=== PATIENT | female | born 1995 | race African-American/Black ===

== ENCOUNTER 2022-04-15 01:20 | Emergency (ER) | payer MEDICAID, OTHER ==
[~2022-04-15] VITALS: Ht 170.2 cm; Wt 80.0 kg
[2022-04-15] MEDS ORDERED: LEVETIRACETAM 1000MG PREMIX 100 ML IV ONE (02:45)
[2022-04-15 03:29] LABS: BASOPHILS % 0.8 % (0.0-2.0); HEMATOCRIT. 43.7 % (36.0-48.0); HEMOGLOBIN. 14.7 g/dL (12.0-16.0); LYMPHOCYTES % 51.9 % (20.0-50.0); MEAN CORPUSCULAR HEMOGLOBIN 33.2 pg (28.0-32.0); MEAN PLATELET VOLUME 7.7 fl (7.4-10.4); MONOCYTES % 8.6 % (2.0-8.0); NEUTROPHILS % 36.7 % (40.0-76.0); PLATELET 213 x1000/uL (130-400); RED BLOOD CELL COUNT 4.42 mill/uL (4.2-5.4); RED CELL DISTRIBUTION WIDTH 13.9 % (11.6-14.6)
[2022-04-15 03:43] LABS: CHLORIDE 107 mEq/L (98-107)
[2022-04-15 03:52] LABS: ETHANOL BLOOD 93 mg/dL
[2022-04-15 04:14] LABS: HCG SCREEN NEGATIVE
[2022-04-15 06:50] VITALS: BP 105/59
== END 2022-04-15 06:59 | disposition home or self-care (01) ==
LOC: ER 01:20
DX: F10.20 Alcohol dependence, uncomplicated (principal); G40.909 Epilepsy, unspecified, not intractable, without status epilepticus; Z98.890 Other specified postprocedural states; Y90.4 Blood alcohol level of 80-99 mg/100 ml
CPT/HCPCS: 36415; 70450; 80053; 80320; 84703; 85025; 96365; 99284; J1953; Z7610; G0480